=== PATIENT | female | born 2000 | race Caucasian/White ===

== ENCOUNTER 2021-08-17 15:23 | Emergency (ER) | payer BC, SELFPAY ==
[2021-08-17 15:35] VITALS: BP 136/94; PULSE 67; RESP 18; TEMP 36.6; O2SAT 100
--- NOTE | 2021-08-17 16:23 | ED.URI ---
HPI - URI/Sore Throat General Chief Complaint: Upper Respiratory Infection Stated Complaint: Congestion/Cough/Sore Throat Time Seen by Provider: 08/17/21 16:10 Source: patient and RN notes reviewed Mode of arrival: ambulatory Limitations: no limitations History of Present Illness HPI Narrative: Patient presents today complaining of a 2-day history of rhinorrhea, fever up to 100.8, nasal congestion, mild cough, few episodes of vomiting and diarrhea. Denies shortness of breath. She has been taking Sudafed and ibuprofen with some relief. She has been vaccinated against COVID-19. MD elicited complaint: fever, cough and nasal congestion Related Data Home Medications Medication Instructions Recorded Confirmed No Home Medications 08/17/21 08/17/21 Allergies Allergy/AdvReac Type Severity Reaction Status Date / Time NKDA Allergy Unknown Uncoded 02/16/03 13:36 NKFA Allergy Unknown Uncoded 02/16/03 13:36 Review of Systems Review of Systems: CONSTITUTIONAL: Denies body aches, chills, or sweats.+ Fever EYES: Denies visual changes, redness, or discharge. ENT: Denies otalgia.+ Rhinorrhea, congestion, sore throat CARDIOVASCULAR: Denies chest pain, palpitations, or edema. RESPIRATORY: Denies dyspnea.+ Cough GASTROINTESTINAL: Denies abdominal pain, nausea. + Vomiting,diarrhea GENITOURINARY: Denies dysuria or hematuria. SKIN: Denies rash, itching, or wounds. MUSCULOSKELETAL: Denies back pain, joint pain, or myalgia. NEUROLOGIC: Denies headache, numbness, tingling, or weakness. PSYCH: Denies depression or anxiety. PMFSH Comments At time of signature, I have reviewed and agree with nursing past medical, surgical, social and family history unless otherwise noted. Please see nursing chart for further information. There is no relevant family history pertinent to the presenting complaint Exam Narrative: GENERAL: Mildly ill-appearing, well-nourished, and in no acute distress. HEAD: Normocephalic, atraumatic. EYES: EOMI. No redness or drainage. Conjunctivae normal. ENT: Mucous membranes pink and moist. Nares congested. No rhinorrhea. TMs normal bilaterally. Throat normal. Uvula midline. NECK: Normal AROM. Supple. No lymphadenopathy. CHEST: No respiratory distress. Clear to auscultation. HEART: Regular rate and rhythm. No murmur appreciated. Normal peripheral pulses. EXTREMITIES: Normal range of motion. No edema. SKIN: Warm, dry, no rash. Capillary refill normal. Normal skin turgor. NEURO: No focal deficits. Alert and oriented x3. Gait steady. PSYCH: Normal affect. No signs of depression or anxiety. Course Course Emergency Course: Covid PCR pending. Vital Signs Vital signs: Vital Signs Temperature 97.8 F 08/17/21 15:35 Pulse Rate 67 08/17/21 15:35 Respiratory Rate 18 08/17/21 15:35 Blood Pressure 136/94 H 08/17/21 15:35 Pulse Oximetry 100 08/17/21 15:35 Temperature 97.8 F 08/17/21 15:35 Pulse Rate 67 08/17/21 15:35 Respiratory Rate 18 08/17/21 15:35 Blood Pressure 136/94 H 08/17/21 15:35 Pulse Oximetry 100 08/17/21 15:35 Reviewed. Pt has been instructed to follow up with her PCP regarding her elevated blood pressure today. MDM - URI/Sore Throat Differential Diagnosis Differential diagnosis: Likely upper respiratory infection, viral infection and other (Strep throat, COVID-19) Lab Data Attestation: I reviewed the patient's lab results. Labs: Strep Screen Presumptive Negative *(Reference Range: Negative)* Critical Care Time Critical Care Time Critical Care Time: No Discharge Plan Discharge Clinical Impression: Viral syndrome Patient Disposition: Home, Self-Care Condition: Stable Instructions: Viral Syndrome (ED) Additional Instructions: Your rapid strep screen is negative today. Swab for PCR COVID-19 test has been sent to the laboratory. These results should come back in 24 to 72 hours, and you w
[2021-08-18 19:18] LABS: SARS-CoV-2 RNA PCR Negative
== END 2021-08-17 16:34 | disposition home or self-care (01) ==
PROVIDERS: Emergency Provider Nurse Practitioner
DX: B34.9 Viral infection, unspecified (principal); Z20.822 Contact with and (suspected) exposure to COVID-19
CPT/HCPCS: 87081; 87880; 99213; C9803; G0463; U0003; U0005

== ENCOUNTER 2024-10-21 17:15 | Emergency (ER) | payer OTHER, BC, SELFPAY ==
[2024-10-21 17:31] VITALS: BP 134/86; PULSE 87; RESP 16; TEMP 37.2; O2SAT 98
--- NOTE | 2024-10-21 17:46 | ED.URI ---
HPI - URI/Sore Throat General Chief Complaint: Upper Respiratory Infection Stated Complaint: Chest Congestion/Cough/Vomiting Time Seen by Provider: 10/21/24 17:46 Source: patient, RN notes reviewed and old records reviewed Mode of arrival: ambulatory Limitations: no limitations History of Present Illness HPI Narrative: 24 year old female with complaints of cough,nasal congestion, low grade fever, episodes of vomiting and diarrhea starting yesterday with some dry heaves noted today. Patient reports that she has also noted some body aches today. Patient reports that she has been able to keep some fluids down but has not been able to eat anything MD elicited complaint: fever, cough, rhinorrhea, nasal congestion and other (vomiting and diarrhea) Onset (ago): day(s) (2) Able to tolerate fluids by mouth: Yes Treatments prior to arrival: none Related Data Allergies Allergy/AdvReac Type Severity Reaction Status Date / Time NKDA Allergy Unknown Uncoded 02/16/03 13:36 NKFA Allergy Unknown Uncoded 02/16/03 13:36 Review of Systems Review of Systems: CONSTITUTIONAL: Reports malaise, chills, sweats, or fever. EYES: Denies visual changes, redness, or discharge. ENT: Reports rhinorrhea, congestion,no sinus pain,no otalgia and no sore throat. CARDIOVASCULAR: Denies chest pain, palpitations, or edema. RESPIRATORY: Reports cough.? Denies dyspnea. GASTROINTESTINAL: Denies abdominal pain,positive for nausea, vomiting, diarrhea SKIN: Denies rash or itching. MUSCULOSKELETAL: Reports myalgia. NEUROLOGIC: Denies headache. All systems reviewed & are unremarkable except as noted in HPI and below PMFSH Past Medical History Medical History (Updated 10/24/24 @ 11:07 by Tuyet Flores NP) Ear infection Surgical History Surgical History (Updated 10/24/24 @ 11:07 by Tuyet Flores NP) History of placement of ear tubes Social History Social History Smoking status: Former smoker Additional smoking assessment comments: uses nicotine pouch Alcohol intake: current Alcohol use details: social Substance use type: does not use Living arrangements: with family Gender identity (if verbalized by the patient): Female Comments At time of signature, agree with nursing past medical, surgical, social and family history. There is no relevant family history pertinent to the presenting complaint Exam Narrative: GENERAL: Ill-appearing, well-nourished, and in no acute distress. HEAD: Normocephalic EYES: PERRLA, conjunctivae clear ENT: Nares clear, turbinates edematous and erythematous, clear discharge. Mucous membranes moist. TM pearly espinoza with dull light reflex bilaterally; no tragal tenderness. Oropharynx erythematous without lesions. Tonsils not enlarged and without exudate, no drooling, no hoarseness, no trismus, uvula midline. NECK: Supple. No lymphadenopathy CHEST: Scattered wheezing on auscultation,, breath sounds equal. + wheezing, no rhonchi, rales, or stridor. No respiratory distress, speaks in full sentences.cough noted SAO2 98% on room air Abdomen soft and nontender to palpation no McBurney point tenderness no distention, positive for nausea vomiting and diarrhea HEART: Regular rate and rhythm. No murmur heard. SKIN: Warm, dry, no rash. NEURO: Alert and oriented x3. PSYCH: Normal mood and affect Course Course Emergency Course: Patient is aware of diagnosis, understands and agrees to treatment plan.? Anticipatory guidance given.? Patient agrees to follow-up as directed and is aware of reasons to seek care at the emergency department. Portions of this record may have been created with voice recognition software Level of Care: Express Care Visit Vital Signs Vital signs: Vital Signs Temperature 37.2 C 10/21/24 17:31 Pulse Rate 87 10/21/24 17:31 Respiratory Rate 16 10/21/24 17:31 Blood Pressure 134/86 10/21/24 17:31 Pulse Oximetry 98 10/21/24 17:31 Oxygen Delivery Room Air 10/21/24 17:31 Temperature 37.2 C 10/21/24 17:31 Pulse Rate 87 10/21/24 17:31 Respiratory Rate 16 10/21/24 17:31 Blood Pressure 134/86 10/21/24 17:31 Pulse Oximetry 98 10/21/24 17:31 Oxygen Delivery Room Air 10/21/24 17:31 Reviewed MDM - URI/Sore Throat MDM Narrative Medical decision making narrative: Differential diagnosis considered: Wright virus, strep pharyngitis, allergic rhinitis, upper respiratory tract infection, sinusitis, rhinosinusitis, nasopharyngitis. viral pharyngitis, otitis media, otitis externa, pneumonia, bronchitis, viral cough syndrome, viral syndrome, and influenza.? Exam findings show no acute concerns or changes; patient is non-toxic appearing and is in no distress.? Patient is appropriate for outpatient treatment and follow-up. Differential Diagnosis Differential diagnosis: Likely upper respiratory infection, viral infection, bronchitis and other (cough, nausea vomiting and diarrhea) Medical Records Attestation: I reviewed the patient's medical records. Lab Data Attestation: I reviewed the patient's lab results. Lab results narrative: Influenza A negative, Influenza B negative, COVID antigen negative Labs: Lab Results 10/21/24 Range/Units 18:21 POC Influenza A Ag Negative (Negative) POC Influenza B Ag Negative (Negative) POC SARS CoV-2 Ag Negative (Negative) reviewed Critical Care Time Critical Care Time Critical Care Time: No Discharge Plan Discharge Clinical Impression: Viral syndrome, Bronchitis Patient Disposition: Home, Self-Care Condition: Stable Instructions: Antibiotic Form, Acute Bronchitis (ED), Viral Syndrome (ED) Additional Instructions: Increase fluids especially juices and water [id number] cough and cold medicine of your choice for your symptoms Zofran as prescribed for nausea Continue your inhaler/nebulizer as directed Steroids as directed--take with food heat to the face 20-30 minutes 4-6 times a day for pain Salt water gargles, throat lozenges or throat sprays as desired Tylenol or ibuprofen for any fever pain Recommend rechecking for COVID and flu tomorrow If your symptoms persist, change or worsen significantly before you can contact your personal physician then please, without delay, go to the emergency department for further evaluation. Follow-up with PCP in 7-10 days or sooner if needed Follow up with PCP soon in regards to your blood pressure which is elevated above threshold for referral. Blood pressure above 120/80 may indicate pre-hypertension. 134/86 Patient Language: Martiniquais Prescriptions: New albuterol sulfate [Ventolin HFA] 90 mcg/actuation HFA aerosol inhaler 2 puff inhalation QID PRN (Reason: shortness of breath or wheezing) Qty: 6.7 0RF prednisone 20 mg tablet 20 mg PO BID Qty: 10 0RF ondansetron 4 mg tablet,disintegrating 4 mg PO Q6H PRN (Reason: nausea and vomiting) Qty: 14 0RF azithromycin 250 mg tablet See Rx Instructions .ROUTE .COMPLEX Qty: 6 0RF Rx Instructions: For 250 mg dose pack: take 500 mg today (day 1), then 250 mg for 4 days (days 2-5) Follow-up/Referrals: UNKNOWN,DOCTOR [Primary Care Provider] - Stand Alone Forms: Work/School Release IP Time of Disposition: 18:38 Quality [place] Coma Scale Eyes: Open Verbal: Oriented and Alert Motor: Follows Commands Joaquin Coma Total Score: 15
[2024-10-21 18:23] LABS: EDCOVIDSCREEN Negative (Negative); EDINFLUASCREEN Negative (Negative); EDINFLUBSCREEN Negative (Negative)
--- OUTSIDE RECORDS SUMMARY | 2024-10-21 18:37 | XMS_ITS | Data Portability ---
Author Organization [facility] [place] Address [address] [place] [address] [place] [address] Assessment Encounter Date Assessment Date Assessment LastModified by Organization Details LastModified Time 12/05/2022 12/05/2022 Annual gynecological exam performed. Patient will come back in a year unless there are new symptoms. Suggest Calcium with Vitamin D if not eating in diet. Patient advised to get annual flu shot. Recommend yearly physicals and preform monthly breast exams. Genetic testing is available for patients with family history of cancer. Engage in safe sexual practices, use condoms. Encouraged to have daily exercise. Avoid tobacco and illicit drugs, moderation of alcohol. If BMI greater than 25 dietary consult advised. If you have any questions please call or email. Not available 12/05/2022 12:07:26 Plan of Treatment Reminders Order Date Submit Date Provider Last Modified By Organization Details Last Modified Time Details Appointments None recorded. Lab None recorded. Referral None recorded. Procedures None recorded. Surgeries None recorded. Imaging US, pelvis 2022 023 misael [place], [address], [address], [place], [address], 3 12:39:03 US, transvagina l 2022 023 misael [place], [address], [place], [address], 3 12:39:02 US, pelvis, complete 2022 023 [email or web address] 1 [facility], [address], [place], [address], 3 20:06:48 Medication Orders Phexxi 1.8 %-1 %-0.4 % vaginal gel 2022 023 TER[id number], [address], [place], [place], [id number], 3 12:08:56 Patient TargetsNo targets recorded. Patient InstructionsNo instructions recorded. Reason for Referral None Reported. Results Created Date Observation Date Name Description Value Unit Range Abnormal Flag Note LastModifiedBy Organization Detail LastModifiedTime 12/06/1912/05/2022 TSH, REFLE X FREE T4 TSH 1.58 uIU/m L 0.30-[address] [facility] (Lab) [address], [place], [address], 12/06/2022 05:15:57 12/06/19 23 12/05/2022 IMAGE GUIDE D PAP, REFLE X HPV IF ASCUS ONLY image guided Pap, reflex HPV ASCUS only SEE RESULT S BELOW CASE REPOR T: Cytol ogy Gynec ologi karla Repor t Case: [id number] Autho jessenia patel Provi royer: Lauren Segundo NP Colle cted: 12/05 1712 Order ing Locat ion: [place] Patho log[facility] Recei sanford: 12/06 1016 First Scree n: Vicenta quinones, Isaac ed, CT Rescr een: Thalia Ventura , [place] Speci men: Scree sherlyn Pap - Image d, Cervi x STATE MENT OF ADEQU ACY: Satis facto ry for evalu ation Trans forma tion zone compo nent absen t The absen ce of an endoc ervic al compo nent was confi rmed by an addit ional scree ner. FINAL DIAGN OSIS: Negat brooklyn for Intra epith elial Lesio n or Malig josh (NIL) . Elect crystal odonnell ute d by Thalia Ventura , CT on 2022 at 1:45 PM ----- ----- ----- ----- ----- ----- ----- ----- ----- ----- ----- ----- ----- ----- ----- ----- ----- ---- COMME NT: This speci men was revie wed by a Cytot echno logis t and/o r Patho logis t (as indic ated in this repor t) after evalu ation using the Thinp rep Imagi ng Syste m. CLINI KARLA INFOR MATIO N: Menst rual Statu s: LMP (if appli cable ): Clini karla Histo ry/Pr eviou s Pap: Type of Neopl krishan (if appli cable ): Signi fican t Clini karla Findi ngs: Other Histo ry: Hormo tali (if appli cable ): PAP EDUCA MINOR L NOTE: The Pap Test is a scree sherlyn test with an inher ent false negat brooklyn rate. Liqui d-bas ed sampl ing may decre ase, but will not elimi jose alejandro, false negat brooklyn resul ts. A negat brooklyn resul t does not precl ude the prese nce and/o r devel opmen t of disea se, since the prese nce of abnor mal cells in the sampl e depen ds on the locat ion of the lesio n and sampl ing techn ique. Rachelle nued regul ar scree sherlyn is the best metho d of cance r preve ntion . If repor zoya cytol ogic findi ng do not corre late with physi karla and/o r histo rical findi ngs, furth er inves tigat ion is recom deon d, as clinannalisa huntley nted. Not Available [facility] (Lab) [address], [place], [address], 12/10/2022 14:47:12 12/06/19 23 12/05/2022 CT/GC (BREANNA) , THINP REP VIAL chlamydia trachomatis, PCR Negati ve negati ve Not Available [facility] (Lab) [address], [place], [address], 12/10/2022 14:47:13 12/06/19 23 12/05/2022 CT/GC (BREANNA) , THINP REP VIAL neisseria gonorrhoeae, PCR Negati ve negati ve Not Available [facility] (Lab) [address], [place], [address], 12/10/2022 14:47:13 12/07/19 23 12/06/2022 US, pelvi s No observ ation record [facility]. [facility] [place] [address] [address], [place], [address], 12/06/2022 18:22:27 12/07/19 23 12/06/2022 US, trans vagin al No observ ation record ed. [email or web address] [place] [address] [address], [place], [address], 12/06/2022 18:22:19 12/07/19 23 12/06/2022 US, pelvi s No observ ation record ed. TERESSA [address], [facility], [place], [address], 01/02/2023 12:25:20 Result Notes None recorded. Procedures Surgical History Date Name Laterality Status Provider Name and Address Organization Details Recorded Time 3 Date of Last Pap Smear completed Leela Velazquez [facility] 12/05/2022 11:44:11 2 procedure on ear completed Leela Velazquez [facility] 12/18/2022 19:40:27 Imaging Results Imaging Date Name Status LastModified by Organization Details LastModified Time 12/06/2022 US, pelvis completed [email or web address] [place] [address] [address], [place], [address], 12/06/2022 18:22:27 12/06/2022 US, transvaginal completed [email or web address] Cintia mitchell [address], [place], [address], 12/06/2022 18:22:19 12/06/2022 US, pelvis completed TERESSA [address], [place], [address], 01/02/2023 12:25:20 Procedure Notes None recorded. Medical Equipment None Reported. Allergies No known drug allergies Medications Name Sig Start Date Stop Date Status Note LastModified by Organization Details LastModified Time neomycin- polymyxin -dexameth 3.5 mg/mL-10, 000 unit/mL-0 .1% eye drops USE 1 DROP INTO RIGHT EYE THREE TIMES DAILY active Not Available Not Available No t Available Phexxi 1.8 %-1 %-0.4 % vaginal gel INSERT 1 APPLICATORFUL VAGINALLY DIRECTED active Not Available Not Available No t Available Vitals Date Recorded Body height Body mass index (BMI) Body weight Systolic blood pressure Diastolic blood pressure Provider Name and Address Organization Details Last Updated DateTime 12/05/2022 161.29 cm 35.7 kg/m2 09310.44 g 126 mm[Hg] 80 mm[Hg] Leela Velazquez [facility] 11:43:49 Social History Question Answer Notes LastModified by Organizat ion Details LastModified Time Tobacco Smoking Status Never Smoker Leela Velazquez null, [facility] 12/18/2022 19:39:44 What Is Your Level Of Alcohol Consumption? Occasional [email or web address] Information not available 12/18/2022 Are You Blind Or Do You Have Difficulty Seeing? No [email or web address] Information not available 12/18/2022 What Is Your Level Of Caffeine Consumption? Occasional [email or web address] Information not available 12/18/2022 In The 14 Days Before Symptom Onset, Have You Had Close Contact With A Laboratory-confir med COVID-19 While That Case Was Ill? No Information not available 12/18/2022 In The 14 Days Before Symptom Onset, Have You Had Close Contact With A Person Who Is Under Investigation For COVID-19 While That Person Was Ill? No Information not available 12/18/2022 Have You Been To An Area Known To Be High Risk For COVID-19? No [email or web address] Information not available 12/18/2022 Are You Deaf Or Do You Have Serious Difficulty Hearing? No [email or web address] Information not available 12/18/2022 What Type Of Diet Are You Following? REGULAR [email or web address] Information not available 12/18/2022 Do You Or Have You Ever Used E-cigarettes Or Vape? Current User Of Electronic Cigarettes [email or web address] Information not available 12/18/2022 Have You Ever Been Counseled For Unhealthy Alcohol Use? No [email or web address] Information not available 12/18/2022 Do You Use Your Seat Belt Or Car Seat Routinely? Yes [email or web address] Information not available 12/18/2022 Do You Have Smoke And Carbon Monoxide Detectors In Your Home? Yes [email or web address] Information not available 12/18/2022 Do You Feel Stressed (tense, Restless, Nervous, Or Anxious, Or Unable To Sleep At Night)? [id number] [email or web address] Information not available 12/18/2022 Do You Use Any Illicit Or Recreational Drugs? No [email or web address] Information not available 12/18/2022 Do You Use Sunscreen Routinely? Yes [email or web address] Information not available 12/18/2022 Has Tobacco Cessation Counseling Been Provided? No [email or web address] Information not available 12/18/2022 Do You Or Have You Ever Used Any Other Forms Of Tobacco Or Nicotine? Yes [email or web address] Information not available 12/18/2022 Sex: Unknown Functional Status Question Answer Note LastModified by Organizat ion Details LastModified Time Do you have difficulty walking or climbing stairs? No [email or web address] Information not available 12/18/2022 Are you able to walk? YESWOREST [email or web address] Information not available 12/18/2022 Are you able to care for yourself? Yes [email or web address] Information not available 12/18/2022 Do you have difficulty dressing or bathing? No [email or web address] Information not available 12/18/2022 What is your exercise level? Occasional [email or web address] Information not available 12/18/2022 Mental Status None recorded. Family History Relationship Description Onset Age of this Age Resolved Age Notes LastModified by Organization Details LastModified Time Maternal Grandmother Heart disease [email or web address] Not available 12/18 19:39:12 Medical History Condition Response Allergies (Food, seasonal, environmental ) N Other N Breast Cancer N Drug/Latex Allergies/Reactions N Blood Transfusion N Dermatologic Disorders N Lung Disease N Defects or Inherited Disease N Breast Problem N Gestational Diabetes N Hematologic disorders N Anesthesia Complications N History of STI N Deep Vein Thrombosis N Polycystic ovary syndrome N Anxiety Disorder N Autoimmune disease N Arthritis N Infertility N Polyps N Acid Reflux (GERD) N History of abnormal pap N Cancer N Stroke N Varicosities N Neurologic/Epilepsy N Endometriosis N High Cholesterol N Headaches N Fibromyalgia N Kidney Disease N Heart Problems N Kidney or Bladder Problems N Thyroid Problems N GI Problems N Eating Disorder N Anemia N Art (IVF or FET) N Psychiatric Illness N Ovarian Cancer N Diabetes N Pulmonary (TB, Asthma) N Hepatitis/Liver Disease N No Past Medical History N Eczema N Urinary Tract Infection N Abuse/Domestic Violence N Asthma N Trauma/Violence N Depression/ depression N Heart Disease N Pre-Eclampsia N Hypertension N Osteoporosis N Thrombophilias N Gynecological History Statement/Question Response Abnormal Pap N Date of LMP 11/12/2022 STIs/STDs N Date of Last Pap Smear 12/05/2022 Current Control Method None LMP Approximate Obstetrics History GPAL:G 0 P 0 0 0 0 Type Value Living 0 Total 0 Past Encounters Encounter ID Performer Location Encounter Start Date Encounter Closed Date Diagnosis/Indication Diagnosis SNOMED-CT Code Diagnosis ICD10 Code [id number] [address] [address] 12/05/2022 11:17:16 12/05/2022 12:11:52 Gynecologic examination 74698112 Z01.419 Abdominal pain 51096394 R10.9 r/o online program coordinator may refer to GI if all wnl, check labs Contracept ion care management 762939845 Z30.9 reviewed ocp, iud, implants, condoms, phexxi, se reviewed [id number] [facility] [address] [address] 12/06/2022 17:35:51 12/07/2022 12:39:02 Abdominal bloating 323631256 R14.0 R10.2 Health Concerns Section Related Observation LastModified by Organization Detai ls LastModified Time None Recorded Concern Status LastModified by Organization Details LastModified Time None Recorded Advance Directives Directive None Recorded Payers Encounter Date Sequence Insurance Name Policy Number Policy Lerner Covered Member ID Lerner Member ID Guarantor Name 12/05/2022 1 [place] [id number] Joshua Salcedo [id number] Maria Teresa Salcedo 12/06/2022 1 [place] [id number] Joshua Salcedo [id number] Maria Teresa Salcedo Notes Date Note Type Note Provider Name and Address Organization Details Recorded Time 12/05/2022 text/html Annual GYNReport ed bypatient.Menstrua l cycle:Normal menses Urinary symptoms:No hematuria; No incontinence Vulva:No genital lesion Vagina:Normal vaginal discharge Breast:No breast pain; No breast lump; No nipple discharge Current Contraception:Cond oms; wants to discuss Sexual complaints:No sexual complaints; No pain during intercourse; Normal libido Menopausal Symptoms:No menopausal symptoms; Normal vaginal lubrication Psychological symptoms:No depression; No anxiety; No PMDD Preventive measures:Encourage self breast examination; Encourage regular exercise; Encourage no tobacco useNotes:sp delivered sisters babyfirst online program coordinator examno hx of std testing no pap hxhas GI complaints no pcp, saw urgent care, c/o nausea cramping and bloating, no specific pain Lauren Jacobs CNM [address], [place], [address], [facility] 12/05/2022 12:10:38 OBGyn Episode No OBEpisode recorded.
--- OUTSIDE RECORDS SUMMARY | 2024-10-21 18:37 | XMS_ITS | Clinical Summary ---
Author Organization [facility] [place] Address [address] [place] [id number] Care Team Providers Care Senior Software Architect Name Role Phone Cecelia Fernández MD Primary Care Provider [phone] Allergies No known active allergies Medications No known medications Active Problems Problem Noted Date Diagnosed Date Current every day nicotine vaping 11/19/2023 Current every day cannabis vaping 11/19/2023 Mild anxiety 11/19/2023 Encounters Date Type Department Care Team Description 10/13/2024 External Device Data [facility]STRACTION Provider, Abstract 09/17/2024 External Device Data [facility] Provider, Abstract 09/15/2024 External Device Data [facility] Provider, Abstract from Last 3 Months Family History Medical History Relation Name Comments Diabetes Father pre No Known Problems Mother No Known Problems Sister 1 No Known Problems Sister 2 Relation Name Status Comments Father Alive Maternal Grandfather Maternal Grandmother Mother Alive Paternal Grandfather Paternal Grandmother Sister 1 Alive Sister 2 Alive Social History Tobacco Use Types Packs/Day Years Used Date Smoking Tobacco: Never Smokeless Tobacco: Never Tobacco Cessation:Counseling Given: Not Answered Alcohol Use Standard Drinks/Week Comments Yes 0 (1 standard drink = 0.6 oz pur e alcohol) socially Comments No Sex and Gender Information Value Date Recorded Sex Assigned at Not on file Legal Sex Female 4:30 PM SAND SIFTER Gender Identity Not on file Sexual Orientation Not on file Last Filed Vital Signs Vital Sign Reading Time Taken Comments Blood Pressure 112/70 12/31/2023 9:36 AM CDT Pulse 71 12/31/2023 9:36 AM CDT Temperature 36.9 C (98.5 F) 12/31/2023 9:36 AM CDT Respiratory Rate 16 12/31/2023 9:36 AM CDT Oxygen Saturation 98% 12/31/2023 9:36 AM CDT Inhaled Oxygen Concentration - - Weight 94.3 kg (208 lb) 12/31/2023 9:36 AM CDT Height 162.6 cm (5' 4 ) 12/31/2023 9:36 AM CDT Body Mass Index 35.7 12/31/2023 9:36 AM CDT Plan of Treatment Health Maintenance Due Date Last Done Comments CHLAMYDIA SCREENING (ANNUAL) 11-24 YEARS 2011 HPV VACCINES (1 - 3-dose series) 2015 DTAP/TDAP/TD VACCINES (1 - Tdap) 2019 HEPATITIS B VACCINES (1 of 3 - 19+ 3-dose series) 2019 INFLUENZA VACCINE (#1) 2024 CERVICAL CANCER SCREENING 12/05/2025 12/05/2022 PNEUMOCOCCAL VACCINE 0-64 YEARS Aged Out No longer eligible based on patient's age to complete this topic Care Teams Senior Software Architect Relationship Specialty Start Date End Date Cecelia Fernández MD [address] [place] [id number] PCP - General Family Practice 11/19/23
== END 2024-10-21 18:47 | disposition home or self-care (01) ==
PROVIDERS: Emergency Provider Registered Nurse
DX: B34.9 Viral infection, unspecified (principal); J40 Bronchitis, not specified as acute or chronic; Z20.822 Contact with and (suspected) exposure to COVID-19
CPT/HCPCS: 87426; 87804; 99213; G0463